=== PATIENT | female | born 1975 ===

== ENCOUNTER 2025-02-28 21:58 | Emergency (ER) | payer OTHER ==
[2025-02-28 22:47] LABS: Basophils # (A) 0.07 10*3/uL (0.00-0.10); Basophils % (A) 0.7 %; Eosinophils # (A) 0.28 10*3/uL (0.04-0.35); Eosinophils % (A) 2.6 %; HCT 42.0 % (37.2-46.3); HGB 13.9 g/dL (12.0-15.0); Lymphocytes # (A) 3.00 10*3/uL (0.90-5.00); Lymphocytes % (A) 28.0 %; MCH 28.3 pg (27.0-32.0); MCHC 33.1 g/dL (32.0-37.0); MCV 85.5 fL (80.0-97.0); Monocytes # (A) 0.74 10*3/uL (0.20-1.00); Monocytes % (A) 6.9 %; Neutrophils # (A) 6.59 10*3/uL (1.80-7.70); Neutrophils % (A) 61.6 %; Platelet Count 266 10*3/uL (140-440); RBC 4.91 10*6/uL (4.10-5.20); RDW 12.3 % (11.5-14.5); WBC 10.70 10*3/uL (4.50-10.00)
[2025-02-28 23:01] LABS: ALT 30 U/L (4-34); AST 33 U/L (14-36); African American GFR (CKD) >90 (>60 ml/min/1.73 sqM); Albumin 4.6 g/dL (3.5-5.0); Alkaline Phosphatase 111 U/L (38-126); Anion Gap 11 mmol/L; Blood Urea Nitrogen 13 mg/dL (7-17); Calcium 10.3 mg/dL (8.4-10.2); Carbon Dioxide 21 mmol/L (22-30); Chloride 105 mmol/L (98-107); Glucose 101 mg/dL (74-99); Magnesium 2.1 mg/dL (1.6-2.3); Non-African American GFR(CKD) >90 (>60 ml/min/1.73 sqM); Potassium 3.7 mmol/L (3.5-5.1); Sodium 137 mmol/L (137-145); Total Protein 7.9 g/dL (6.3-8.2)
[2025-02-28 23:05] LABS: INR 0.9 (<1.2); Partial Thromboplastin Time 23.6 sec (22.0-30.0); Prothrombin Time 10.5 sec (10.0-12.5)
--- NOTE | 2025-02-28 23:20 | ED ---
General Adult HPI - General Source: police, EMS, RN notes reviewed Mode of arrival: EMS Limitations: no limitations <Duke Skinner - Last Filed: 02/28/25 23:18> <Marialuisa Galindo - Last Filed: 03/03/25 11:22> - General Chief complaint: Chest Pain Stated complaint: Chest Pain Time Seen by Provider: 02/28/25 22:11 - History of Present Illness Initial comments: Quick note: This is a 49-year-old female with history of anxiety presenting for chest pain and anxiety x 1 day. Patient states she was placed in a close room by PD, causing her to become anxious with associated chest pain, numbness in her face and arms, headache and nausea. Patient states chest pain is beginning to resolve (11/07). Denies dizziness, diaphoresis, radiating pain, dyspnea. (Duke Skinner) This is a pleasant 49-year-old female no significant past medical history history of panic attacks presenting today for a panic attack. Patient states that she was recently detained by border patrol after trying to cross the [facility] border. She states she has a history of trauma and PTSD from childhood that is triggered if she is placed in small spaces. States that she was placed in a small room by border patrol and started feeling [id number] in her chest, numbness in her face arms, pressure-like headache and nausea. Denies any focal neurologic deficits, changes in vision, slurred speech, dizziness, focal numbness or weakness. She denies difficulty in breathing, cough, hemoptysis or leg swelling. She has no first-degree family members w/ history of CAD or ACS or CVAs. She has no history of diabetes, high cholesterol or hypertension. She states her pain has since resolved and she currently endorses a mild pressure-like headache (Marialuisa Galindo) - Related Data Allergies Allergy/AdvReac Type Severity Reaction Status Date / Time No Known Allergies Allergy Verified 02/28/25 22:04 Review of Systems ROS Other: All systems not noted in ROS Statement are negative. <Duke Skinner - Last Filed: 02/28/25 23:18> ROS Other: All systems not noted in ROS Statement are negative. <Marialuisa Galindo - Last Filed: 03/03/25 11:22> ROS Statement: Those systems with pertinent positive or pertinent negative responses have been documented in the HPI. Past Medical History Past Medical History: No Reported History History of Any Multi-Drug Resistant Organisms: None Reported Past Surgical History: No Surgical Hx Reported Past Psychological History: No Psychological Hx Reported Smoking Status: Never smoker Past Alcohol Use History: None Reported Past Drug Use History: None Reported <BrodyMarcin brownling - Last Filed: 02/28/25 23:18> General Exam Limitations: no limitations <Duke Skinner - Last Filed: 02/28/25 23:18> <Marialuisa Galindo - Last Filed: 03/03/25 11:22> - General Exam Comments Initial Comments: Visual Physical Exam Vital signs reviewed General: Well-appearing, nontoxic, no acute distress. Head: Normocephalic, atraumatic Eyes: PERRLA, EOMI ENT: Airway patent Chest: Nonlabored breathing Skin: No visual rash, normal skin tone Neuro: Alert and oriented 3 Musculoskeletal: No gross abnormalities (Duke Skinner) PE: CONSTITUTIONAL: No apparent distress, well appearing SKIN: Warm, dry, no jaundice, hives or petechiae EYES: Pupils are equally round, extraocular movements intact without nystagmus, clear conjunctiva, non-icteric sclera HENT: Normocephalic, atraumatic, moist mucus membranes, oropharynx clear without exudates NECK: , Full range of motion, normal appearance PULMONARY: Clear to auscultation without wheezes, rhonchi, or rales, normal excursion, no accessory muscle use and no stridor CARDIOVASCULAR: Regular rate, rhythm, normal S1 and S2. No appreciated murmurs, rubs or gallops. Strong radial pulses with intact distal perfusion. No lower extremity edema GASTROINTESTINAL: Soft, active bowel sounds throughout, non-tender, non- distended, no palpable masses, no rebound or guarding. No hepatosplenomegaly GENITOURINARY: MUSCULOSKELETAL: Extremities have no gross deformity, no edema, redness, or swelling. No calf swelling NEUROLOGIC:_a/o x 3, GCS 15, normal mentation and speech. Moves all extremities x 4 without motor or sensory deficit PSYCHIATRIC:_normal mood and affect, thought process is clear and linear (Marialuisa Galindo) Course Vital Signs 02/28/25 03/01/25 22:00 01:29 Temperature 97.4 F L 97.6 F Pulse Rate 70 63 Respiratory 18 16 Rate Blood Pressure 107/68 132/84 O2 Sat by Pulse 100 100 Oximetry EKG Findings - EKG Comments: EKG Findings:: Sinus rhythm, rate 62 bpm, intervals within acceptable limits, questionable right bundle branch block, no significant ST elevations or depressions, no arrhythmia <Marialuisa Galindo - Last Filed: 03/03/25 11:22> Medical Decision Making - Lab Data Result diagrams: 02/28/25 22:40 02/28/25 22:40 <Duke Skinner - Last Filed: 02/28/25 23:18> - Lab Data Result diagrams: 02/28/25 22:40 02/28/25 22:40 <Marialuisa Galindo - Last Filed: 03/03/25 11:22> - Medical Decision Making I completed the quick note portion of this chart signed CHER Dickson (Duke Skinner) Was pt. sent in by a medical professional or institution ([facility], [employer], urgent ca re, hospital, or skilled nursing...) When possible be specific @ -No Did you speak to anyone other than the patient for history (EMS, parent, family, police, friend...)? What history was obtained from this source @ -No Did you review nursing and triage notes (agree or disagree)? Why? @ -I reviewed nursing and triage notes Were old charts reviewed (outside hosp., previous admission, EMS record, old EKG, old radiological studies, urgent care reports/EKG's, skilled nursing records)? Report findings @ -Medical records reviewed no prior records available for Differential Diagnosis (chest pain, altered mental status, abdominal pain women, abdominal pain men, vaginal bleeding, weakness, fever, dyspnea, syncope, headache, dizziness, GI bleed, back pain, seizure, CVA, palpatations, mental health, musculoskeletal)? Differential Chest Pain: Stable Angina, Unstable Angina, STEMI, NSTEMI Aortic Dissection, pericarditis, pleurisy, chostochondirits, Pneumothorax, Musculoskeletal, Esophageal Spasm GERD, Cholecystitis, Pancreatitis, Zoster, this is not meant to be an all- inclusive list. EKG interpreted by me (3pts min.). @ -As above X-rays interpreted by me (1pt min.). @Personally reviewed chest x-rays and evidence of cardiomegaly, consolidation, pneumothorax or pleural effusion CT interpreted by me (1pt min.). @ -None done U/S interpreted by me (1pt. min.). @ -None done What testing was considered but not performed or refused? (CT, X-rays, U/S, labs)? Why? @ -None What meds were considered but not given or refused? Why? @ -None Did you discuss the management of the patient with other professionals (professionals i.e. , PA, [employer], lab, RT, psych nurse, health social work professor, police captain senior, teacher, policy officer, case management coordinator)? Give summary @ -No Was smoking cessation discussed for >3mins.? @ -No Was critical care preformed (if so, how long)? @ -No Were there social determinants of health that impacted care today? How? (Homelessness, low income, unemployed, alcoholism, drug addiction, transporta tion, low edu. Level, literacy, decrease access to med. care, nursing home, rehab)? @ -No Was there de-escalation of care discussed even if they declined (Discuss DNR or withdrawal of care, Hospice)? @ -No What co-morbidities impacted this encounter? (DM, HTN, Smoking, COPD, CAD, Cancer, CVA, ARF, Chemo, Hep., AIDS, mental health diagnosis, sleep apnea, morbid obesity)? @ -Obesity Was patient admitted / discharged? Hospital course, mention meds given and route, prescriptions, significant lab abnormalities, going to OR and other pertinent info. @Discharged -this is a pleasant 49-year-old female presenting today for panic attack like symptoms. Initially seen and assessed by triage provider. Patient was seen and assessed by myself in the waiting room due to ED at overflow capacity. I obtained patient's permission to obtain history and perform her assessment in the waiting room. On my assessment she is resting comfortably. Endorses only mild headache. Other symptoms have resolved. Labs and imaging reviewed. Grossly within normal limits. Abnormal values not concerning for acute pathology related to presenting complaint.. Heart score of 2. Patient given ibuprofen and Tylenol for headache and discharged into the care of [facility]. In my medical judgment there is currently no evidence of an immediate life- threatening or surgical condition. Discharge is therefore indicated at this time. Discharge treatment instructions, follow up instructions, and appropriate emergency department return precautions were discussed with the patient and/or medical decision maker. Patient and/or medical decision maker expressed understanding of and agreed with the treatment plan, follow up instructions, and emergency department return precaution. All patient's and/or medical decision maker's questions were answered. The patient was advised that a small risk still exists that a serious condition could develop and was therefore instructed to return to the ED for any changes in symptoms, persistent symptoms, inability to obtain proper follow-up or for any further concerns. Patient received verbal and written instructions for this condition. Undiagnosed new problem with uncertain prognosis? @ -No Drug Therapy requiring intensive monitoring for toxicity (Heparin, Nitro, Insu dori, Cardizem)? @ -No Were any procedures done? @ -No Diagnosis/symptom? @Panic attack Acute, or Chronic, or Acute on Chronic? @Acute Uncomplicated (without systemic symptoms) or Complicated (systemic symptoms)? @Uncomplicated Side effects of treatment? @ -No Exacerbation, Progression, or Severe Exacerbation? @ -No Poses a threat to life or bodily function? How? (Chest pain, [place], [place], pneumonia, PE, COPD, DKA, ARF, appy, cholecystitis, CVA, Diverticulitis, Homicidal, Suicidal, threat to staff... and all critical care pts) @ -No (,Marialuisa) - Lab Data Lab Results 02/28/25 02/28/25 02/28/25 Range/Units 22:40 22:40 22:40 WBC 10.70 H (4.50-10.00) 10*3/uL RBC 4.91 (4.10-5.20) 10*6/uL Hgb 13.9 (12.0-15.0) g/dL Hct 42.0 (37.2-46.3) % MCV 85.5 (80.0-97.0) fL MCH 28.3 (27.0-32.0) pg MCHC 33.1 (32.0-37.0) g/dL Plt Count 266 (140-440) 10*3/uL MPV 10.7 (9.5-12.2) fL Immature Gran % (Auto) 0.2 % Neutrophils % 61.6 % Lymphocytes % 28.0 % Monocytes % 6.9 % Eosinophils % 2.6 % Basophils % 0.7 % Immature Gran # 0.02 (0.00-0.04) 10*3/uL Neutrophils # 6.59 (1.80-7.70) 10*3/uL Lymphocytes # 3.00 (0.90-5.00) 10*3/uL Monocytes # 0.74 (0.20-1.00) 10*3/uL Eosinophils # 0.28 (0.04-0.35) 10*3/uL Basophils # 0.07 (0.00-0.10) 10*3/uL PT 10.5 (10.0-12.5) sec INR 0.9 (<1.2) APTT 23.6 (22.0-30.0) sec Sodium 137 (137-145) mmol/L Potassium 3.7 (3.5-5.1) mmol/L Chloride 105 (98-107) mmol/L Carbon Dioxide 21 L (22-30) mmol/L Anion Gap 11 mmol/L BUN 13 (7-17) mg/dL Creatinine 0.53 (0.52-1.04) mg/dL Est GFR (CKD-EPI)AfAm >90 (>60 ml/min/1.73 sqM) Est GFR (CKD-EPI)NonAf >90 (>60 ml/min/1.73 sqM) Glucose 101 H (74-99) mg/dL Calcium 10.3 H (8.4-10.2) mg/dL Magnesium 2.1 (1.6-2.3) mg/dL Total Bilirubin 0.5 (0.2-1.3) mg/dL AST 33 (14-36) U/L ALT 30 (4-34) U/L Alkaline Phosphatase 111 (38-126) U/L Troponin I (0.000-0.034) ng/mL Total Protein 7.9 (6.3-8.2) g/dL Albumin 4.6 (3.5-5.0) g/dL 02/28/25 Range/Units 22:40 WBC (4.50-10.00) 10*3/uL RBC (4.10-5.20) 10*6/uL Hgb (12.0-15.0) g/dL Hct (37.2-46.3) % MCV (80.0-97.0) fL MCH (27.0-32.0) pg MCHC (32.0-37.0) g/dL Plt Count (140-440) 10*3/uL MPV (9.5-12.2) fL Immature Gran % (Auto) % Neutrophils % % Lymphocytes % % Monocytes % % Eosinophils % % Basophils % % Immature Gran # (0.00-0.04) 10*3/uL Neutrophils # (1.80-7.70) 10*3/uL Lymphocytes # (0.90-5.00) 10*3/uL Monocytes # (0.20-1.00) 10*3/uL Eosinophils # (0.04-0.35) 10*3/uL Basophils # (0.00-0.10) 10*3/uL PT (10.0-12.5) sec INR (<1.2) APTT (22.0-30.0) sec Sodium (137-145) mmol/L Potassium (3.5-5.1) mmol/L Chloride (98-107) mmol/L Carbon Dioxide (22-30) mmol/L Anion Gap mmol/L BUN (7-17) mg/dL Creatinine (0.52-1.04) mg/dL Est GFR (CKD-EPI)AfAm (>60 ml/min/1.73 sqM) Est GFR (CKD-EPI)NonAf (>60 ml/min/1.73 sqM) Glucose (74-99) mg/dL Calcium (8.4-10.2) mg/dL Magnesium (1.6-2.3) mg/dL Total Bilirubin (0.2-1.3) mg/dL AST (14-36) U/L ALT (4-34) U/L Alkaline Phosphatase (38-126) U/L Troponin I <0.012 (0.000-0.034) ng/mL Total Protein (6.3-8.2) g/dL Albumin (3.5-5.0) g/dL Disposition <Duke Skinner - Last Filed: 02/28/25 23:18> Is patient prescribed a controlled substance at d/c from ED?: No <Marialuisa Galindo - Last Filed: 03/03/25 11:22> Clinical Impression: Panic attack Disposition: HOME SELF-CARE Condition: Good Instructions (If sedation given, give patient instructions): Chest Pain (ED) Additional Instructions: Every disease is a spectrum and a small chance still exists that a serious condition could develop, for this reason, please monitor yourself closely for new, changing or worsening symptoms, symptoms that persist beyond 48 hours, swelling in your legs, coughing up blood, difficulty in breathing, severe chest pain or change in the location, intensity or quality of your chest pain, fever, inability to tolerate/keep down fluids or your medications, inability to follow up with outpatient providers as instructed and should you experience these symptoms or should you have any further concerns for your wellbeing please return to the ED or call 911 immediately. PLEASE call your primary care physician as soon as possible to arrange / discuss plan for followup appointment. Appointment in the next 1-3 days is strongly encouraged if possible. PLEASE let us know here before you leave if there is anything further we can do to be of any assistance. Take care and feel Better! Referrals: None,Stated [Primary Care Provider] - 1-2 days
--- NOTE | 2025-03-01 00:27 | XR ---
EXAM: XR Chest, 2 Views CLINICAL HISTORY: ITS.REASON XR Reason: Chest Pain TECHNIQUE: Frontal and lateral views of the chest. COMPARISON: No relevant prior studies available. FINDINGS: Lungs: Unremarkable. No consolidation. Pleural space: Unremarkable. No pneumothorax. Heart: Unremarkable. No cardiomegaly. Mediastinum: Unremarkable. Bones/joints: Unremarkable. IMPRESSION: No consolidation.
[2025-03-01] MEDS: ACETAMINOPHEN TAB 500 MG TAB PO STA (01:28)
[2025-03-01] MEDS: IBUPROFEN 600 MG TAB PO STA (01:28)
[2025-03-01 01:37] VITALS: BP 132/84; PULSE 63; RESP 16; TEMP 97.6
== END 2025-03-01 01:47 | disposition home or self-care (01) ==
LOC: EC 21:58
DX: F41.0 Panic disorder [episodic paroxysmal anxiety] (principal)
CPT/HCPCS: 36415; 71046; 80053; 83735; 84484; 85025; 85610; 85730; 93005; 99285